=== PATIENT | female | born 1960 | race Caucasian/White ===

== ENCOUNTER 2021-01-30 17:24 | Emergency (ER) | payer MEDICAID ==
[~2021-01-30] VITALS: Ht 160 cm; Wt 69.9 kg
[2021-01-30 17:44] VITALS: Ht 160 cm; Wt 69.9 kg
[2021-01-30 18:28] LABS: UA SPECIFIC GRAVITY <=1.005 (1.005-1.035); microscopic required? YES; urine erythrocyte TRACE (NEGATIVE)
[2021-01-30] MEDS ORDERED: KEFLEX750 M1 PO (21:45)
[2021-01-30 22:04] VITALS: BP 133/72
== END 2021-01-30 22:04 | disposition home or self-care (01) ==
LOC: ED 17:24
PROVIDERS: Student in an Organized Health Care Education/Training Program
DX: N39.0 Urinary tract infection, site not specified (principal)